=== PATIENT | female | born 1970 ===

== ENCOUNTER 2017-08-19 15:48 | Observation (INO) | payer BC ==
[2017-08-19] MEDS ORDERED: Morphine 4 MG/ML VIAL ONE (15:58)
[2017-08-19] MEDS ORDERED: Sodium Chloride 0.9% 1,000 ML ONE ×2 (15:58→16:34)
[2017-08-19] MEDS ORDERED: Labetalol 25mg/5ml Syringe IV STA (16:00)
[2017-08-19] MEDS ORDERED: Iodixanol 320 MG/ML 100 ML BOTTLE IV ONE (16:00)
[2017-08-19 16:08] LABS: BASO # 0.1 K/uL (0.0-0.2); BASO % 1.4 % (0.0-2.0); EOS # 0.1 K/uL (0.0-0.7); HEMOGLOBIN 12.8 g/dL (11.0-16.0); LYMPH # 2.5 K/uL (1.0-4.3); LYMPH % 34.3 % (20.0-40.0); MEAN CELL VOLUME 86.6 fL (81.0-99.0); MEAN CORPUSCULAR HEMOGLOBIN 30.2 pg (27.0-31.0); MEAN CORPUSCULAR HGB CONC 34.9 g/dL (33.0-37.0); MEAN PLATELET VOLUME 7.9 fL (7.2-11.7); MONO # 0.7 K/uL (0.0-0.8); NEUT # 3.9 K/uL (1.8-7.0); NEUT % 53.3 % (50.0-75.0); NRBC % 0.1 % (0.0-2.0); RBC 4.24 Mil/uL (3.80-5.20); RED CELL DISTRIBUTION WIDTH 13.8 % (11.5-14.5); WHITE BLOOD COUNT 7.4 K/uL (4.8-10.8)
--- NOTE | 2017-08-19 16:11 | C.PDOC ---
History Of Present Illness 46 y/o female with history of Anemia and High cholesterol brought to ED by EMS sent by Dr. Cooper for new onset HTN while at office today 160/110. Patient states this afternoon while at work she developed severe frontal headache associated with double vision and vomiting, went to PMD office who sent her to ED. Upon arrival to ED patient is in obvious distress and is complaining of mid and frontal area headache. No other complaints at this time. Time Seen by Provider: 08/19/17 15:55 Chief Complaint (Nursing): Headache History Per: Patient History/Exam Limitations: no limitations Onset/Duration Of Symptoms: Hrs Current Symptoms Are (Timing): Still Present Quality: "Pain" Associated Symptoms: Blurred Vision Past Medical History Reviewed: Historical Data, Nursing Documentation, Vital Signs Vital Signs: Last Vital Signs Temp 97.9 F 08/19/17 17:51 Pulse 72 08/19/17 17:51 Resp 18 08/19/17 17:51 BP 154/95 H 08/19/17 17:51 Pulse Ox 98 08/19/17 18:02 - Medical History PMH: No Chronic Diseases Surgical History: No Surg Hx Family History: States: No Known Family Hx - Social History Hx Alcohol Use: No Hx Substance Use: No Review Of Systems Constitutional: Negative for: Fever, Chills Eyes: Positive for: Vision Change Gastrointestinal: Positive for: Vomiting. Negative for: Abdominal Pain, Diarrhea Neurological: Positive for: Headache. Negative for: Weakness, Numbness Physical Exam - Physical Exam Appears: In Acute Distress Skin: Warm, Dry, No Rash Head: Atraumatic, Normacephalic Eye(s): bilateral: PERRL, Other (When opens eyes patient has doubled vision ) Oral Mucosa: Moist Neck: Normal ROM, Supple Cardiovascular: Rhythm Regular Respiratory: Normal Breath Sounds, No Rales, No Rhonchi, No Wheezing Gastrointestinal/Abdominal: Soft, No Tenderness, No Guarding, No Rebound Extremity: Normal ROM, Capillary Refill (<2 seconds) Pulses: Left Carotid: Normal, Right Carotid: Normal DTR: Bicep (R): 2+, Bicep (L): 2+, Knee (R): 2+, Knee (L): 2+ Neurological/Psych: Oriented x3, Normal Speech, Normal Cognition, Normal Cranial Nerves, Normal Motor, Normal Sensation Extremity: Right: No Drift, Left: No Drift, Upper: No Drift, Lower: No Drift ED Course And Treatment - Laboratory Results Result Diagrams: 08/19/17 16:02 08/19/17 16:02 Lab Interpretation: No Acute Changes ECG: Interpreted By Me ECG Rhythm: Sinus Rhythm ECG Interpretation: Normal O2 Sat by Pulse Oximetry: 98 (RA) Pulse Ox Interpretation: Normal - Radiology CXR: Interpreted by Me CXR Interpretation: Yes: No Acute Disease - CT Scan/US CT head w/o contrast Other Rad Studies (CT/US): Read By Radiologist, Radiology Report Reviewed CT/US Interpretation: IMPRESSION: Normal CT of the Head. No intracranial hemorrhage. No evidence of acute infarct. CTA head/neck Other Rad Studies (CT/US): Read By Radiologist, Radiology Report Reviewed CT/US Interpretation: IMPRESSION: No evidence of occlusion significant stenosis or large aneurysm nor vascular malformation. Elliptical shaped approximately 1.9 x 13.2 x 1.2 cm soft tissue density in the left nasal cavity. This is of uncertain etiology though could represent a nasal polyp. Recommend followup ENT consultation Progress Note: Code stroke called @15:55. Dr. Gregorio at ED evaluate patient at bedside Reevaluation Time: 17:57 Reassessment Condition: Improved (Patient still having a mild headache but BP markedly improved. No neurologic deficits.) - Physician Consult Information Time Consulting Physician Contacted: 18:01 Physician Contacted: Tim Cooper Outcome Of Conversation: He will admit patient overnight for observation of further hypertensive crisis. NIHSS Stroke Scale - Date/Time Evaluation Performed Date Performed: 08/19/17 Time Performed: 15:55 When Was NIHSS Performed: Baseline - How Severe is the Stoke Level of Consciousness: 0=Alert LOC to Questions: 0=Both comments correct LOC to commands: 0=Obeys both correctly Best Gaze: 0=Normal Visual: 0=No visual loss Facial: 0=Normal Motor Arm - Left: 0=No drift Motor Arm - Right: 0=No drift Motor Leg - Left: 0=No drift Motor Leg - Right: 0=No drift Limb Ataxia: 0=Absent Sensory: 0=Normal Best Language: 0=No aphasia Dysarthia: 0=Normal articulation Extinction & Inattention (Neglect): 0=Normal, no object Score: 0 Severity Of Stroke: 0= No Stroke Disposition - Disposition Disposition: HOSPITALIZED Disposition Time: 18:05 Condition: IMPROVED Forms: [employer] (German) - POA Present On Arrival: None - Clinical Impression Clinical Impression: Headache, Hypertensive crisis - Scribe Statement The provider has reviewed the documentation as recorded by the Scribyaneth Gaitan All medical record entries made by the Scribe were at my direction and personally dictated by me. I have reviewed the chart and agree that the record accurately reflects my personal performance of the history, physical exam, medical decision making, and the department course for this patient. I have also personally directed, reviewed, and agree with the discharge instructions and disposition.
[2017-08-19 16:14] LABS: PROTHROMBIN TIME 11.1 SECONDS (9.7-12.2)
[2017-08-19 16:20] LABS: ALB/GLOB RATIO 1.2 (1.0-2.1); ALBUMIN 4.5 g/dL (3.5-5.0); CALCIUM 8.8 mg/dl (8.6-10.4); GFR AFRICAN-AMERICAN > 60; GFR NON-AFRICAN AMERICAN > 60; HDL CHOLESTEROL 51 mg/dL (30-70)
[2017-08-19 16:24] LABS: ALT/SGPT 24 U/L (9-52); AST/SGOT 35 U/L (14-36); BLOOD UREA NITROGEN 9 mg/dL (7-17)
[2017-08-19] MEDS ORDERED: DiphenhydrAMINE 50 mg/ml Inj IVP STA (16:29)
--- NOTE | 2017-08-19 16:30 | CT ---
PROCEDURE: CT HEAD WITHOUT CONTRAST. HISTORY: Code Stroke COMPARISON: None available. TECHNIQUE: Axial computed tomography images were obtained through the head/brain without intravenous contrast. Radiation dose: Total exam DLP = 872.60 mGy-cm. This CT exam was performed using one or more of the following dose reduction techniques: Automated exposure control, adjustment of the mA and/or kV according to patient size, and/or use of iterative reconstruction technique. FINDINGS: HEMORRHAGE: No intracranial hemorrhage. BRAIN: No mass effect or edema. No atrophy or chronic microvascular ischemic changes. VENTRICLES: Unremarkable. No hydrocephalus. CALVARIUM: Unremarkable. PARANASAL SINUSES: Unremarkable as visualized. No significant inflammatory changes. MASTOID AIR CELLS: Unremarkable as visualized. No inflammatory changes. OTHER FINDINGS: None. IMPRESSION: Normal CT of the Head. No intracranial hemorrhage. No evidence of acute infarct. The findings in this examination were discussed by telephone with Dr. Puga at 4:25 PM on .
[2017-08-19 16:31] LABS: LDL CHOLESTEROL 113 mg/dL (0-129)
[2017-08-19] MEDS ORDERED: DiphenhydrAMINE 50 mg/ml Inj ONE (16:34)
[2017-08-19] MEDS: Sodium Chloride 0.9% 1,000 ML IV SCH (16:36)
--- NOTE | 2017-08-19 16:51 | CT ---
PROCEDURE: CTA neck dated 08/19/2017 HISTORY: Severe headache, HTN, diplopia. COMPARISON: Comparison made with concurrent CT scan of the brain. TECHNIQUE: Contiguous helical/transaxial images of the neck were obtained from the level of the skull-base to the superior mediastinum in the arteriographic phase of enhancement. Coronal and sagittal reformats or also generated. IV contrast dose: 100 cc Visipaque 320 Radiation Dose - DLP: 581.9 mGy-cm This CT exam was performed using one or more of the following dose reduction techniques: Automated exposure control, adjustment of the mA and/or kV according to patient size, and/or use of iterative reconstruction technique. . FINDINGS: The visualized portions of the aortic arch are well opacified with. No significant atherosclerotic plaque changes are identified. . The origins of the great vessels are widely patent. The visualized common carotid arteries, carotid bifurcations and internal carotid arteries are widely patent without significant stenosis. The distal internal carotid arteries including the petrous , cavernous and supraclinoid segments also widely patent without occlusion or significant stenosis . The there is asymmetry of the vertebral arteries left-side of which is larger in caliber/ more dominant than the right felt to represent an anatomic variation. Basilar artery is patent. The visualized the major branches of the [place] are patent without evidence of occlusion or significant stenosis. Slight asymmetry of the A1 segments right-sided which is slightly larger in caliber more dominant than the left felt to represent an anatomic variation. The distal cerebral vasculature of the anterior middle and posterior cerebral arteries are symmetric. No evidence of large aneurysm nor vascular malformation. OTHER FINDINGS: Note is made of a elliptical shaped approximately 1.9 x 13.2 x 1.2 cm soft tissue density in the left nasal cavity. This is of uncertain etiology though could represent a nasal polyp. Recommend followup ENT consultation. IMPRESSION: No evidence of occlusion significant stenosis or large aneurysm nor vascular malformation. Elliptical shaped approximately 1.9 x 13.2 x 1.2 cm soft tissue density in the left nasal cavity. This is of uncertain etiology though could represent a nasal polyp. Recommend followup ENT consultation
[2017-08-19] MEDS ORDERED: Labetalol 25mg/5ml Syringe ONE (16:56)
--- NOTE | 2017-08-19 18:15 | RAD ---
HISTORY: Code Stroke COMPARISON: No prior. FINDINGS: LUNGS: Suspect minor bibasilar atelectasis PLEURA: No significant pleural effusion identified, no pneumothorax apparent. CARDIOVASCULAR: Heart is enlarged. OSSEOUS STRUCTURES: No significant abnormalities. VISUALIZED UPPER ABDOMEN: Normal. OTHER FINDINGS: None. IMPRESSION: The suspect minor bibasilar atelectasis. Cardiomegaly.
[2017-08-19] MEDS ORDERED: Morphine 4 MG/ML VIAL IVP PRN (20:48)
--- NOTE | 2017-08-19 21:54 | CP.PCM.CON ---
History of Present Illness - History of Present Illness History of Present Illness: 46 yr old right handed woman who is a [employer] and comes in with acute onset of headache, 01/25, in nature, with vomiting and photophobia , severe in nature. Miss abarca denies any head trauma, mva, recent lifting of heavy weights, or new medications. She had vomiting as well, and gives a history of headaches for several years now, linked to her menstrual cycle. Her initial blood pressure is quite high, and she does not have a history of hypertension. PMH/PSH: hypertension, s/p cholecystectomy FH/SH: social drinking. no tobacco. All: nkda. On exam: examined in the ER Normal neurological examination. no meningismus, no nystagmus. Past Patient History - Past Social History Smoking Status: Never Smoked - PSYCHIATRIC Hx Substance Use: No Meds Allergies/Adverse Reactions: Allergies Allergy/AdvReac Type Severity Reaction Status Date / Time No Known Allergies Allergy Unverified 08/19/17 15:54 - Medications Medications: Current Medications Sodium Chloride (Sodium Chloride 0.9%) 1,000 mls @ 100 mls/hr IV .Q10H FRANCISCO Results - Vital Signs Recent Vital Signs: Last Vital Signs Temp 97.3 F L 08/19/17 15:52 Pulse 94 H 08/19/17 16:29 Resp 18 08/19/17 16:29 BP 161/98 H 08/19/17 16:29 Pulse Ox 97 08/19/17 16:29 - Labs Result Diagrams: 08/19/17 16:02 08/19/17 16:02 Labs: Laboratory Results - last 24 hr 08/19/17 08/19/17 08/19/17 16:02 16:02 16:02 WBC 7.4 RBC 4.24 Hgb 12.8 Hct 36.8 MCV 86.6 MCH 30.2 MCHC 34.9 RDW 13.8 Plt Count 253 MPV 7.9 Neut % (Auto) 53.3 Lymph % (Auto) 34.3 [place] % (Auto) 9.0 Eos % (Auto) 2.0 Baso % (Auto) 1.4 Neut # (Auto) 3.9 Lymph # (Auto) 2.5 [place] # (Auto) 0.7 Eos # (Auto) 0.1 Baso # (Auto) 0.1 PT 11.1 INR 1.0 APTT 26 Sodium 141 Potassium 3.5 L Chloride 102 Carbon Dioxide 25 Anion Gap 18 BUN 9 Creatinine 0.8 Est GFR ( Amer) > 60 Est GFR (Non-Af Amer) > 60 Random Glucose 120 H Hemoglobin A1c Calcium 8.8 Total Bilirubin 0.7 AST 35 ALT 24 Alkaline Phosphatase 59 Troponin I < 0.0120 Total Protein 8.3 Albumin 4.5 Globulin 3.9 Albumin/Globulin Ratio 1.2 Triglycerides 126 Cholesterol 192 LDL Cholesterol Direct 113 HDL Cholesterol 51 08/19/17 16:02 WBC RBC Hgb Hct MCV MCH MCHC RDW Plt Count MPV Neut % (Auto) Lymph % (Auto) [place] % (Auto) Eos % (Auto) Baso % (Auto) Neut # (Auto) Lymph # (Auto) [place] # (Auto) Eos # (Auto) Baso # (Auto) PT INR APTT Sodium Potassium Chloride Carbon Dioxide Anion Gap BUN Creatinine Est GFR ( Amer) Est GFR (Non-Af Amer) Random Glucose Hemoglobin A1c 5.4 Calcium Total Bilirubin AST ALT Alkaline Phosphatase Troponin I Total Protein Albumin Globulin Albumin/Globulin Ratio Triglycerides Cholesterol LDL Cholesterol Direct HDL Cholesterol - Imaging and Cardiology CT scan - head Status: Image reviewed by me, Report reviewed by me (Normal CT head ) Assessment & Plan - Assessment and Plan (Free Text) Assessment: 46 yr old woman with what appears to be severe migraine headache, menstrual with no hemiplegic components. Plan; 1. IMitrex,reglan and toradol ordered in the ER. 2. IV fluids, rest as tolerated Thank you for this interesting consult. DR. bee MD, DPN
[2017-08-19 23:29] VITALS: RESP 20
[2017-08-20] MEDS: Sodium Chloride 0.9% 1,000 ML IV SCH ×3 (00:30→13:35)
--- NOTE | 2017-08-20 07:09 | CP.PCM.PN ---
Subjective - Date & Time of Evaluation Date of Evaluation: 08/20/17 Time of Evaluation: 07:04 - Subjective Subjective: Ms. Varela was seen and examined at the bedside. She is alert, oriented in all spheres. She states of experiencing very minimal frontal headache non- radiating. She denies any nausea or vomiting. She is able to follow all simple commands. CTA of the head and neck showed no evidence of occlusion significant stenosis or large aneurysm nor AVM. There is an elliptical shaped approximately 1.9x 13.2 x 1.2 cm soft tissue density in the left nasal cavity. This is of uncertain etiology though could represent nasal polyp. There was no untoward events overnight. Objective - Vital Signs/Intake and Output Vital Signs (last 24 hours): Temp Pulse Resp BP Pulse Ox 98.1 F 66 20 155/91 H 97 08/20/17 06:00 08/20/17 06:00 08/20/17 06:00 08/20/17 06:00 08/20/17 06:00 - Medications Medications: Current Medications Amlodipine Besylate (Norvasc) 5 mg PO DAILY FRANCISCO Sodium Chloride (Sodium Chloride 0.9%) 1,000 mls @ 100 mls/hr IV .Q10H FRANCISCO Last Admin: 08/20/17 00:30 Dose: 100 mls/hr Magnesium Oxide (Mag-Ox) 400 mg PO BID FRANICSCO Morphine Sulfate (Morphine) 2 mg IVP Q6 PRN PRN Reason: severe pain - Labs Labs: 08/19/17 16:02 08/19/17 16:02 PT 11.1 SECONDS (9.7-12.2) 08/19/17 16:02 INR 1.0 08/19/17 16:02 APTT 26 SECONDS (21-34) 08/19/17 16:02 - Constitutional Appears: No Acute Distress - Head Exam Head Exam: NORMAL INSPECTION - Neurological Exam Neurological Exam: Alert, Awake, Oriented x3 Neuro motor strength exam: Left Upper Extremity: 5, Right Upper Extremity: 5, Left Lower Extremity: 5, Right Lower Extremity: 5 Additional comments: She is alert, oriented x3 follow simple commands. Sensation is intact. Assessment and Plan (1) Headache Assessment & Plan: Case discussed with Dr. Gregorio, continue all current medical regimen. Recommend blood pressure control, Magnesium oxide 400 mg PO BID, and ENT consult regarding incidental findings seen in the CTA of the head and neck. Patient may follow up with a neurologist if headache episode occurs too often. If patient would like to follow up with either Dr. Gregorio/ Rosalia at [address] [place] [address]. [address] [place] [address]. Tel. # [phone]. Status: Acute
[2017-08-20] MEDS ORDERED: Magnesium Oxide 400 mg Tab UD PO SCH (10:00)
--- NOTE | 2017-08-20 14:45 | CP.PCM.HP ---
History of Present Illness - History of Present Illness History of Present Illness: 46 y/o female c/o severe headche few days. BP also noted to be elevated. Advised hospital admission. No fever. No head injury Present on Admission - Present on Admission History of DVT/PE: No History of Uncontrolled Diabetes: No Urinary Catheter: No Decubitus Ulcer Present: No Review of Systems - Review of Systems All systems: reviewed and no additional remarkable complaints except (headache, weakness) Past Patient History - Past Medical History & Family History Past Medical History?: Yes - Past Social History Smoking Status: Never Smoked - CARDIAC Hx Cardiac Disorders: Yes Hx Hypertension: Yes - PULMONARY Hx Respiratory Disorders: No - NEUROLOGICAL Hx Neurological Disorder: No - HEENT Hx HEENT Problems: No - RENAL Hx Chronic Kidney Disease: No - ENDOCRINE/METABOLIC Hx Endocrine Disorders: No - HEMATOLOGICAL/ONCOLOGICAL Hx Blood Disorders: No - INTEGUMENTARY Hx Dermatological Problems: No - MUSCULOSKELETAL/RHEUMATOLOGICAL Hx Musculoskeletal Disorders: No Hx Falls: No - GASTROINTESTINAL Hx Gastrointestinal Disorders: No - GENITOURINARY/GYNECOLOGICAL Hx Genitourinary Disorders: No - PSYCHIATRIC Hx Substance Use: No - SURGICAL HISTORY Hx Surgeries: Yes Hx Cholecystectomy: Yes (2015) - ANESTHESIA Hx Anesthesia: Yes Hx Anesthesia Reactions: No Hx Malignant Hyperthermia: No Has any member of the family had a problem w/ anesthesia?: No Meds Allergies/Adverse Reactions: Allergies Allergy/AdvReac Type Severity Reaction Status Date / Time No Known Allergies Allergy Unverified 08/19/17 15:54 Physical Exam - Constitutional Appears: No Acute Distress - Head Exam Head Exam: NORMAL INSPECTION - Eye Exam Eye Exam: Normal appearance Pupil Exam: NORMAL ACCOMODATION - ENT Exam ENT Exam: Normal Exam - Respiratory Exam Respiratory Exam: NORMAL BREATHING PATTERN - GI/Abdominal Exam GI & Abdominal Exam: Soft - Rectal Exam Rectal Exam: Deferred - Extremities Exam Extremities exam: Positive for: normal inspection - Neurological Exam Neurological exam: Alert, Oriented x3 Results - Vital Signs Recent Vital Signs: Last Vital Signs Temp 97.7 F 08/20/17 08:27 Pulse 76 08/20/17 09:38 Resp 20 08/20/17 08:27 BP 157/88 H 08/20/17 09:38 Pulse Ox 98 08/20/17 08:27 - Labs Result Diagrams: 08/19/17 16:02 08/19/17 16:02 Labs: Laboratory Results - last 24 hr 08/19/17 08/19/17 08/19/17 16:02 16:02 16:02 WBC 7.4 RBC 4.24 Hgb 12.8 Hct 36.8 MCV 86.6 MCH 30.2 MCHC 34.9 RDW 13.8 Plt Count 253 MPV 7.9 Neut % (Auto) 53.3 Lymph % (Auto) 34.3 [place] % (Auto) 9.0 Eos % (Auto) 2.0 Baso % (Auto) 1.4 Neut # (Auto) 3.9 Lymph # (Auto) 2.5 [place] # (Auto) 0.7 Eos # (Auto) 0.1 Baso # (Auto) 0.1 PT 11.1 INR 1.0 APTT 26 Sodium 141 Potassium 3.5 L Chloride 102 Carbon Dioxide 25 Anion Gap 18 BUN 9 Creatinine 0.8 Est GFR ( Amer) > 60 Est GFR (Non-Af Amer) > 60 Random Glucose 120 H Hemoglobin A1c Calcium 8.8 Total Bilirubin 0.7 AST 35 ALT 24 Alkaline Phosphatase 59 Troponin I < 0.0120 Total Protein 8.3 Albumin 4.5 Globulin 3.9 Albumin/Globulin Ratio 1.2 Triglycerides 126 Cholesterol 192 LDL Cholesterol Direct 113 HDL Cholesterol 51 Blood Type Antibody Screen 08/19/17 08/19/17 16:02 16:02 WBC RBC Hgb Hct MCV MCH MCHC RDW Plt Count MPV Neut % (Auto) Lymph % (Auto) [place] % (Auto) Eos % (Auto) Baso % (Auto) Neut # (Auto) Lymph # (Auto) [place] # (Auto) Eos # (Auto) Baso # (Auto) PT INR APTT Sodium Potassium Chloride Carbon Dioxide Anion Gap BUN Creatinine Est GFR ( Amer) Est GFR (Non-Af Amer) Random Glucose Hemoglobin A1c 5.4 Calcium Total Bilirubin AST ALT Alkaline Phosphatase Troponin I Total Protein Albumin Globulin Albumin/Globulin Ratio Triglycerides Cholesterol LDL Cholesterol Direct HDL Cholesterol Blood Type A POSITIVE Antibody Screen Negative Assessment & Plan (1) Headache Status: Acute (2) Hypertensive crisis Status: Acute (3) Nasal polyp Status: Acute - Assessment and Plan (Free Text) Assessment: A/P: BP 150/89 on Norvasc. Seen by Dr. Baldwin Neurology. CT head normal except nasal polyp. [place] better. D/c home
[2017-08-20 16:12] VITALS: BP 143/92; PULSE 75; TEMP 97.7; O2SAT 99
--- NOTE | 2017-08-21 07:53 | CARD ---
APPROVED REPORT EKG Measurement Heart [id number] MD [id number] <Conclusion> Normal sinus rhythm Normal ECG
== END 2017-08-20 16:30 | disposition home or self-care (01) ==
LOC: C.ER 15:48 → C.9E 18:05 → C.6T 18:41
PROVIDERS: ADMIT Internal Medicine; ATTEND Internal Medicine
DX: I16.9 Hypertensive crisis, unspecified (principal); I10 Essential (primary) hypertension; J33.9 Nasal polyp, unspecified; Z90.49 Acquired absence of other specified parts of digestive tract; G43.829 Menstrual migraine, not intractable, without status migrainosus
CPT/HCPCS: 70450; 70496; 70498; 71045; 80053; 80061; 83036; 84484; 85025; 85610; 85730; 86850; 86900; 96374; 99285; G0378; J1200; J1885; J2270; J7040; Q9967